=== PATIENT | female | born 1940 | race Caucasian/White ===

== ENCOUNTER 2021-04-18 17:58 | Emergency (ER) | payer OTHER ==
[~2021-04-18] VITALS: Ht 160 cm; Wt 79.4 kg
[2021-04-18 19:42] LABS: ABSOLUTE NEUTROPHILS 4.5 thou/uL (1.4-8.2); BASOPHILS 0.9 % (0.0-2.0); EOSINOPHILS 0.7 % (0.0-3.0); HEMATOCRIT 40.6 % (37.0-47.0); HEMOGLOBIN 13.2 gm/dL (12.0-15.0); LYMPHOCYTES 23.1 % (24.0-44.0); MCH 26.8 pg (26.0-34.0); MCHC 32.5 g/dL (28.0-37.0); MCV 82.5 fL (80.0-100.0); MONOCYTES 15.3 % (1.0-8.0); PLATELET COUNT 197 thou/uL (150-400); RBC 4.92 mil/uL (4.20-5.00); WBC 7.6 thou/uL (4.0-11.0)
[2021-04-18 19:59] LABS: ANION GAP 7 mmol/L (7-16); BUN 17 mg/dL (7-18); CHLORIDE 108 mmol/L (98-107); CO2 28 mmol/L (21-32); CREATININE 1.1 mg/dL (0.6-1.0); GLUCOSE 103 mg/dL (74-106); POTASSIUM 4.2 mmol/L (3.5-5.1); SODIUM 143 mmol/L (136-145)
[2021-04-18 20:10] LABS: ALBUMIN 3.2 g/dL (3.4-5.0); SGOT 8 U/L (15-37); SGPT 17 U/L (14-59); TOTAL BILIRUBIN 0.2 mg/dL (0.2-1.0); TROPONIN-I <0.06 ng/mL (<0.06)
--- NOTE | 2021-04-18 20:11 | EKG ---
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 : 1940 Requested By: Milka Alvarez Order Number: [id number] MD: Johan Alfonso Measurements Intervals [place] Rate: 57 P: NH: QRS: -23 QRSD: 96 T: 46 QT: 448 QTc: 437 Interpretive Statements Atrial fibrillation Low voltage, precordial leads Abnormal R-wave progression, early transition Probable left ventricular hypertrophy No previous ECG available for comparison Electronically Signed On 04-18-2021 20:10:56 CDT by Johan Alfonso [email or web address] <ELECTRONICALLY SIGNED> By: Johan Alfonso MD, [facility] 04/18/212009 30 1831 Johan Alfonso MD, FAC /EPI
[2021-04-18 20:32] VITALS: BP 142/61
== END 2021-04-18 20:49 | disposition home or self-care (01) ==
LOC: ER 17:58
PROVIDERS: Physician Assistant
DX: R07.89 Other chest pain (principal); R00.1 Bradycardia, unspecified; I48.91 Unspecified atrial fibrillation; I10 Essential (primary) hypertension; E78.5 Hyperlipidemia, unspecified

== ENCOUNTER 2021-06-04 21:00 | Emergency (ER) | payer OTHER ==
[~2021-06-04] VITALS: Ht 172.7 cm; Wt 83.7 kg
--- NOTE | ~2021-06-04 | EMS ---
[address] [address] EMS Patient Care Report Name: VILMA JOHNSON Room #: DEP YOLIE Stahl#: [id number] Admission: 06/04/21 Attend Phys: Discharge: 06/04/21 Date of : 44 Report #: [id number] THIS REPORT FOR: //name// Report Transmitted: 06/05/2021 08:36 EMS Care Summary [place], [place]/[facility] Incident [id number] @ 06/04/2021 20:25 Incident Location [address] [place], [place] [id number] Patient VILMA JOHNSON Female, 80 Years 1940 Patient Address [address] [place], [place] [id number] Patient History Dementia,Parkinson's Disease,Atrial Fibrillation, Patient Allergies No known allergies, Patient Medications ASA, Cardizem, Metoprolol, Plavix, Chief Complaint bilateral leg pain Disposition Transported No Lights/[place] Dispatch Reason Falls Transported To [facility] Narrative Arrived to find pt sitting on ground in room in memory care unit. Staff stated they checked on pt and found her sitting on ground. Unwitnessed fall. Pt states [address] [address] EMS Patient Care Report Name: VILMA JOHNSON Room #: DEP YOLIE Stahl#: [id number] Admission: 06/04/21 Attend Phys: Discharge: 06/04/21 Date of : 44 Report #: [id number] she did not hit her head and does not have neck, head, or back pain. Pt does have dementia but states only her feet and lower legs hurt. No obvious deformity anywhere on body. Pt family has POA and wants her transported to [facility]. Staff also states she has refused her Parkinsons medication today. Pt states she does not feel as if she is injured. Pt stands and bears weight on both legs and sits on cot where she is secured with cot straps. Pt placed in back of unit and placed in surgical mask. Pt transported without incident. care to rn, rm 9. Initial Vitals @20:44P: 61,BP: 122/71,CO: 0,SpO2: 94, @20:43P: 66,R: 18,BP: 131/77,Pain: 2/10,GCS: 14,Glucose: 116,SpO2: 94,Revised Trauma: 12, Assessments @20:42MENTAL:Place Oriented,Person Oriented,Confused,SKIN:HEENT:Head/Face: No Abnormalities,Eyes: No Abnormalities,Neck/Airway: No Abnormalities,LUNG SOUNDS:General: No Abnormalities,Left Upper: No Abnormalities,Right Upper: No Abnormalities,Left Lower: No Abnormalities,Right Lower: No Abnormalities,ABDOMEN:General: No Abnormalities,Left Upper: No Abnormalities,Right Upper: No Abnormalities,Left Lower: No Abnormalities,Right Lower: No Abnormalities,PELVIS//GI:No Abnormalities,EXTREMITIES:Left Leg: Other,Right Leg: Other,Left Arm: No Abnormalities,Right Arm: No Abnormalities,PULSE:NEURO:Tremors, Impression Extremity Pain Procedures @20:42ALS AssessmentResponse: UnchangedSucceeded Timeline 20:23,Call Received 20:23,Dispatch Notified 20:25,Dispatched 20:26,En Route 20:38,On Scene 20:41,At Patient 20:42,ALS Assessment,Response: UnchangedSucceeded, 20:43,BP: 131/77 M,PULSE: 66,RR: 18 R,SPO2: 94 Ox,ETCO2: ,B,PAIN: 2,GCS: 14, 20:44,BP: 122/71 M,PULSE: 61,RR: R,SPO2: 94 Ox,ETCO2: ,BG: ,PAIN: ,GCS: , 20:48,Depart Scene 20:57,At Destination 21:10,Call Closed [facility] [address] [place] [address] EMS Patient Care Report Name: VILMA JOHNSON Room #: DEP YOLIE Stahl#: [id number] Admission: 06/04/21 Attend Phys: Discharge: 06/04/21 Date of : 44 Report #: [id number] Disclaimer v1.1 Copyright 2020 [employer] This EMS Care Summary contains data elements from the applicable legal record (which may be displayed differently). It is designed to provide pertinent information for the following purposes: continuity of care, clinical quality, and state data reporting. The complete legal record is available to ED staff and administrators of the receiving hospital in [employer]'s Patient Tracker. All data is provided "as is."
[2021-06-04] MEDS ORDERED: ASA81BEC PO (21:20)
[2021-06-04] MEDS ORDERED: PLAVIX 75 MG TA75 MG PO (21:22)
[2021-06-04] MEDS ORDERED: DEXAMETHASO1 MG/1 ML INTRAOCULR (21:25)
[2021-06-04] MEDS ORDERED: DILTIAZEM ER240 MG PO (21:31)
[2021-06-04] MEDS ORDERED: LEVO-T50 MCG PO (21:33)
[2021-06-04] MEDS ORDERED: MELATONIN3 M1 PO (21:34)
[2021-06-04] MEDS ORDERED: LOPRESSOR50 MG PO (21:35)
[2021-06-04] MEDS ORDERED: REMERON 30 MG T30 M1 PO (21:37)
[2021-06-04] MEDS ORDERED: OLANZAPINE5 M1 PO ×2 (21:38→21:42)
[2021-06-04] MEDS ORDERED: KLOR-CON M2020 MEQ PO (21:43)
[2021-06-04] MEDS ORDERED: OMEPRAZOLE40 MG PO (21:43)
[2021-06-04] MEDS ORDERED: SEROQUEL 25 MG25 MG PO (21:44)
[2021-06-04] MEDS ORDERED: SEROQUEL 50 MG50 M1 PO (21:44)
[2021-06-04] MEDS ORDERED: VITAMIN B-121000 MC2 PO (21:45)
[2021-06-04] MEDS ORDERED: ATIVAN0.5 M1 PO (21:46)
[2021-06-04 22:09] VITALS: BP 121/57
== END 2021-06-04 23:31 ==
LOC: ER 21:00
DX: S80.12XA Contusion of left lower leg, initial encounter (principal); S80.11XA Contusion of right lower leg, initial encounter; I10 Essential (primary) hypertension; I48.91 Unspecified atrial fibrillation; Z79.82 Long term (current) use of aspirin; Z79.899 Other long term (current) drug therapy; W17.89XA Other fall from one level to another, initial encounter; Y93.89 Activity, other specified; Y92.89 Other specified places as the place of occurrence of the external cause; Y99.8 Other external cause status

== ENCOUNTER 2021-06-05 20:23 | Emergency (ER) | payer OTHER ==
[~2021-06-05] VITALS: Ht 160 cm; Wt 90.7 kg
[~2021-06-05 20:23] MED LIST: ASA81BEC PO; ATIVAN0.5 M1 PO; DEXAMETHASO1 MG/1 ML INTRAOCULR; DILTIAZEM ER240 MG PO; KLOR-CON M2020 MEQ PO; LEVO-T50 MCG PO; LOPRESSOR50 MG PO; MELATONIN3 M1 PO; OLANZAPINE5 M1 PO; OMEPRAZOLE40 MG PO; PLAVIX 75 MG TA75 MG PO; REMERON 30 MG T30 M1 PO; SEROQUEL 25 MG25 MG PO; SEROQUEL 50 MG50 M1 PO; VITAMIN B-121000 MC2 PO
[2021-06-05 21:50] VITALS: BP 135/71
== END 2021-06-05 21:45 | disposition home or self-care (01) ==
LOC: ER 20:23
DX: M25.512 Pain in left shoulder (principal); I48.91 Unspecified atrial fibrillation; I10 Essential (primary) hypertension; E78.5 Hyperlipidemia, unspecified; Z79.82 Long term (current) use of aspirin; Z79.891 Long term (current) use of opiate analgesic; Z79.899 Other long term (current) drug therapy; Z87.891 Personal history of nicotine dependence; W19.XXXA Unspecified fall, initial encounter; Y93.89 Activity, other specified; Y92.89 Other specified places as the place of occurrence of the external cause; Y99.8 Other external cause status

== ENCOUNTER 2021-06-09 17:51 | Emergency (ER) | payer OTHER ==
[~2021-06-09] VITALS: Ht 165.1 cm; Wt 79.4 kg
--- NOTE | ~2021-06-09 | EMS ---
[address] [address] EMS Patient Care Report Name: VILMA JOHNSON Room #: DEP YOLIE Stahl#: [id number] Admission: 06/09/21 Attend Phys: Discharge: 06/09/21 Date of : 44 Report #: [id number] THIS REPORT FOR: //name// Report Transmitted: 06/11/2021 01:18 EMS Care Summary [place], [place]/[facility] Incident [id number] @ 06/09/2021 16:49 Incident Location [address] [place], [place] [id number] Patient VILMA JOHNSON Female, 80 Years 1940 Patient Address [address] [place], [place] [id number] Patient History Dementia,Parkinson's Disease,Atrial Fibrillation, Patient Allergies No known allergies, Patient Medications Plavix, ASA, Cardizem, Metoprolol, Chief Complaint FALL Disposition Transported No Lights/[place] Dispatch Reason Falls Transported To [facility] Narrative MEDIC 35 WAS DISPATCHED TO THE ADDRESS LISTED PREVIOUSLY IN THIS REPORT ON A FALL. UPON ARRIVAL, EMS OBSERVED ONE FEMALE PATIENT SITTING UPRIGHT IN A [address] [address] EMS Patient Care Report Name: VILMA JOHNSON Room #: DEP Hakeem.#: [id number] Admission: 06/09/21 Attend Phys: Discharge: 06/09/21 Date of : 44 Report #: [id number] WHEELCHAIR. PATIENT WAS TRACKING EMS UPON APPROACH. RETIREMENT STAFF INFORMED EMS THAT THE PATIENT HAD FALLING MULTIPLE DAYS IN THE DAYS LEADING UP TO EMS ARRIVAL. RETIREMENT STAFF STATED THAT THEY HAD OBSERVED THE PATIENT VIA [facility]ERA SIT ON THE GROUND. RETIREMENT STAFF INFORMED EMS THAT THE FALL WAS "BEHAVORIAL". PATIENT WAS THEN PLACED ON THE COT AND MOVED TO THE AMBULANCE WITHOUT INCIDENT. ONCE IN THE AMBULANCE, VITAL SIGN MONITORING CONTINUED. ONCE ENROUTE TO THE RECEIVING FACILITY ([facility] VITAL SIGN MONITORING CONTINUED AND RADIO REPORT WAS GIVEN. [facility], PATIENT WASMOVED FROM THE AMBULANCE TO THE HOSPITAL COT WITHOUT INCIDENT. VERBAL REPORT WAS GIVEN TO THE PATIENT'S NURSE AND PATIENT CARE WAS TRANSFERRED. Initial Vitals @17:20P: 89,R: 16,Pain: 6/10,GCS: 15,SpO2: 98, Assessments @17:08MENTAL:Confused,SKIN:HEENT:LUNG SOUNDS:ABDOMEN:PELVIS//GI:EXTREMITIES:Left Arm: Edema,Left Arm: Other,Left Leg: Edema,Left Leg: Abnormal Sensation,Right Leg: Abnormal Sensation,Right Leg: Edema,Left Leg: Other,Right Leg: Other,PULSE:Radial: 2+ Normal,Pedal: 2+ Normal,NEURO: Impression Injury of Hip Procedures @17:28Saline Lock 10cc (22 ga) Site: Hand-LeftResponse: UnchangedSucceeded@17:08ALS AssessmentResponse: UnchangedSucceeded Timeline 16:36,Call Received 16:36,Dispatch Notified 16:49,Dispatched 16:49,En Route 17:03,On Scene 17:08,At Patient 17:08,ALS Assessment,Response: UnchangedSucceeded, 17:20,BP: / M,PULSE: 89,RR: 16 R,SPO2: 98 Ox,ETCO2: ,BG: ,PAIN: 6,GCS: 15, 17:28,Saline Lock 10cc 22 ga Site: Hand-Left,Response: UnchangedSucceeded, 17:32,Depart Scene 17:43,At Destination 18:02,Call Closed Disclaimer v1.1 Copyright 2020 [employer] This EMS Care Summary contains data elements from the applicable legal record [facility] [address] [place] [address] EMS Patient Care Report Name: VILMA JOHNSON [id number] Admission: 06/09/21 Attend Phys: Discharge: 06/09/21 Date of : 42 Report #: [id number] (which may be displayed differently). It is designed to provide pertinent information for the following purposes: continuity of care, clinical quality, and state data reporting. The complete legal record is available to ED staff and administrators of the receiving hospital in [employer]'s Patient Tracker. All data is provided "as is."
[~2021-06-09 17:51] MED LIST changes: -DEXAMETHASO1 MG/1 ML INTRAOCULR; +DEXAMETHASONE 0.5 M1 OPHTHALMIC; +MELATONIN10 M1 PO; -MELATONIN3 M1 PO
[2021-06-09 18:39] LABS: URINE BILIRUBIN NEGATIVE (Negative); URINE BLOOD NEGATIVE (Negative); URINE CLARITY CLEAR; URINE COLOR YELLOW; URINE GLUCOSE-RANDOM* NEGATIVE (Negative); URINE KETONES NEGATIVE (Negative); URINE LEUKOCYTES-REFLEX 3+ (Negative); URINE NITRITE-REFLEX POSITIVE (Negative); URINE PROTEIN (DIPSTICK) NEGATIVE (Negative); URINE SPECIFIC GRAVITY 1.015 (1.005-1.035); URINE UROBILINOGEN 0.2 E.U./dl (0.2-1.0)
[2021-06-09 18:46] LABS: SQUAMOUS >10 Many /LPF (0-3)
[2021-06-09 18:47] LABS: BACTERIA-REFLEX >30 Many /HPF (None Seen)
[2021-06-09 18:48] LABS: CASTS None Seen /LPF (None Seen); CRYSTALS None Seen /LPF (None Seen); URINE RBC None Seen /HPF (NONE SEEN)
[2021-06-10 07:02] VITALS: BP 120/63
== END 2021-06-09 21:24 | disposition home or self-care (01) ==
LOC: ER 17:51
PROVIDERS: Nurse Practitioner
DX: F03.90 Unspecified dementia, unspecified severity, without behavioral disturbance, psychotic disturbance, mood disturbance, and anxiety (principal); M25.551 Pain in right hip; M25.552 Pain in left hip; I10 Essential (primary) hypertension; Z79.899 Other long term (current) drug therapy; Z79.82 Long term (current) use of aspirin

== ENCOUNTER 2021-06-10 13:57 | Emergency (ER) | payer OTHER ==
[~2021-06-10] VITALS: Ht 165.1 cm; Wt 79.4 kg
[2021-06-11 01:03] VITALS: BP 90/66
== END 2021-06-11 01:03 ==
LOC: ER 13:57
PROVIDERS: Nurse Practitioner
DX: R46.89 Other symptoms and signs involving appearance and behavior (principal); Z20.822 Contact with and (suspected) exposure to COVID-19; I48.91 Unspecified atrial fibrillation; I10 Essential (primary) hypertension; E78.5 Hyperlipidemia, unspecified; Z79.82 Long term (current) use of aspirin; Z79.891 Long term (current) use of opiate analgesic; Z79.899 Other long term (current) drug therapy; Z87.891 Personal history of nicotine dependence

== ENCOUNTER 2021-06-10 14:39 | Inpatient (IN) | payer OTHER ==
[~2021-06-10] VITALS: Ht 167.6 cm; Wt 83.8 kg
--- NOTE | 2021-06-11 03:24 | NUR ---
PATIENT IS ADMITTED FROM [facility] ER TO 527 WITH NEGATIVE PCR REPORT UNDER THE CARE OF DR RICHARDS. SHE IS ALERT AND ORIENTED. MAX ASSIST WITH TRANSFER. SHE IS INCONTINET OF BOWEL AND BLADDER. SHE WAS SLEEPY AND WEAK AND ALSO ATTEMPTING TO HIT THE STAFF SHE UNABLE TO RESPOND TO QUESTIONS. CALL TO THE HOSPITALIST FOR CONSULT AND HOME MEDS VERIFIED WITH THE ON-CALL PSYCH DOCTOR. MULTIPLE BRUISES NOTED TO HER BODY. WT NOTED AT 180.5LBS ON BED SCALE. SHE DENIES PAINS AT THIS TIME. YELLOW SOCKS ON. Q [address].
[2021-06-11 04:23] VITALS: BP 128/54
[2021-06-11 09:08] LABS: CHOLESTEROL 159 mg/dL (<200); HDL CHOLESTEROL 52 mg/dL (>40); LDL CHOLESTEROL 85 mg/dL (<100); TC:HDL 3.1 Ratio (Not establshd); TRIGLYCERIDE 111 mg/dL (<150); VLDL 22 mg/dL (<40)
[2021-06-11 09:11] VITALS: BP 125/51
--- NOTE | 2021-06-11 14:46 | NUR ---
Assumed pt care at 0700. Pt was alert and oriented to self. Assessments completed, vss. uncooperative, aggressive with care and assessments. No sign of acute distress noted upon assessments. No c/o pain. Bruises noted on pt thighs, legs and arms. Pictures of bruises taken, placed in chart. incontinent of bowel and bladder. Pt is a high fall risk. Fall precaution in Place. Took meds whole with tin liquid, no difficulty noted. At this time pt is in the day room. Will continue to monitor.
--- NOTE | 2021-06-11 14:59 | NUR ---
06-11-2021--13:00--GROUP--Patient was present for group. She was unable to participate in the group due to her dementia.
[2021-06-11 19:50] VITALS: BP 141/66
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
--- NOTE | 2021-06-12 01:11 | NUR ---
ASSUMED CARE ON 06/11/21 @ 1900, SEATED UPRIGHT IN NEGRA CHAIR IN THE DAY ROOM. ORIENTED X1 TO SELF ONLY, VSS, INCONTINENT OF B&B, BECOMES COMBATITIVE WITH CARE. FALL PRECAUTIONS IN PLACE, TAKES MEDS CRUSHED IN PUDDING, ONLY TAKES TINY BITES AT A TIME, TRYING TO TASTE IT. REFUSED WATER DURING MEDICATION ADMINISTRATION. UNABLE TO ASSESS FOR MENTAL HEALTH, NO SI/HI INDICATIONS NOTED, NO INDICATION OF HALUCINATIONS. DEMENTIA NOTED, CANNOT UNDERSTAND THAT THE CARES PROVIDED ARE TO TAKE CARE OF HER. BED IN LOW POSITION, BED ALARM SET, WILL CONTINUE TO MONITOR FOR COMFORT AND SAFETY PER UNIT PROTOCOL.
--- NOTE | 2021-06-12 12:07 | NUR ---
Admit to [facility]: Pt noted with lewy body dementia, increased behaviors. Combative with cares. Frequent, recent falls. Moved to new memory care facility 06/03. Currently with UTI, abt in place. Family to discuss possibility of hospice services. Regular diet with no s/s chewing/swallowing issues. Poor intake yesterday, but 100% both meals today. BMI 29, WNL for age. Follow intake trends. Low nutrition risk at this time.
[2021-06-12 13:17] LABS: ABSOLUTE NEUTROPHILS 4.5 thou/uL (1.4-8.2); BASOPHILS 0.9 % (0.0-2.0); CALCIUM 9.3 mg/dL (8.5-10.1); CREATININE 0.9 mg/dL (0.6-1.0); EOSINOPHILS 0.6 % (0.0-3.0); HEMATOCRIT 40.7 % (37.0-47.0); HEMOGLOBIN 13.4 gm/dL (12.0-15.0); LYMPHOCYTES 16.4 % (24.0-44.0); MCH 26.9 pg (26.0-34.0); MCHC 32.9 g/dL (28.0-37.0); MCV 81.7 fL (80.0-100.0); PLATELET COUNT 198 thou/uL (150-400); POLYS 65.1 % (36.0-66.0); POTASSIUM 4.2 mmol/L (3.5-5.1); RBC 4.98 mil/uL (4.20-5.00); WBC 6.9 thou/uL (4.0-11.0)
--- NOTE | 2021-06-12 18:05 | NUR ---
CHEMO and Dr. Zamudio participated in a phone call with [facility] Pt's daughter, Kaley. An update was given on the Pt. Dr. Zamudio provided education on delirum and Lewy body. Kaley was very emotional during this call and begin to cry asking " So is my mother dying". Information on the status of the pt not eating or taking medications was discussed. Dr. Zamudio discussed the antibiotics for the UTI and other medications. CHEMO requested the family contact the nurses station 1-2x daily for updates. If unable to get the nurse asked them to call CHEMO. Chemo provided contact information. CHEMO will continue to follow.
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
--- NOTE | 2021-06-12 22:12 | NUR ---
UPON ENTRANCE TO THE UNIT NOTED THAT PATIENT IS YELLING AT STAFF AND COMBATIVE. STAFF WAS ATTEMPTING TO GET HER CLEANED AFTER AN INCONTINENT EPISODE. AFTER PATIENT WAS CLEANED SHE CONTINUES TO SCREAM AND IS KICKING AT STAFF. NOTIFIED PROVIDER OF PATIENT SITUATION. EXPLAINED THAT SHE WILL NOT FOLLOW SIMPLE COMMANDS. AM SHIFT STATED THAT THE PATIENT HAD RECEIVED GEODON EARLIER IN THE SHIFT TO NO EFFECT. RECEIVED ORDER FOR HALDOL 5MG IM X1 AND ATIVAN 1MG IM. PATIENT TOLERATED IM OKAY. SHE IS DISORIENTED AND UNABLE TO ANSWER ANY QUESTIONS PER ADMISSION BASELINE. WILL CONTINUE TO MONITOR PATIENT FOR NEEDS.
[2021-06-13 09:13] VITALS: BP 132/74
--- NOTE | 2021-06-13 15:00 | NUR ---
Joan was alert and oriented to herself, at times. She has a delayed response, when responding to her name as she appears preoccupied with things that are not there. She appears to be reaching for things that are not there and spoke about a "man right there" but there was not anyone there. She was restless throughout the shift, often trying to pull her clothes off, requiring frequent redirection. She was medication compliant, taking pills whole in yogurt or applesauce. Her appetite remains poor, despite frequent attempts to feed pt, but she did finish half an applesauce, and half a yogurt with her daytime medications. She has a yellow fall shirt and non-skid socks on as pt is a high fall risk. She received a shower this shift and is total cares. Pt denies pain this shift and did not appear to be in any distress or voice physical complaints. Will continue to monitor.
[2021-06-13 19:22] VITALS: BP 140/82
--- NOTE | 2021-06-14 03:51 | NUR ---
AT THE BEGINNING OF HS SHIFT PATIENT WAS AGAIN IRRITATED. SHE WAS YELLING AT BAG MAKING MACHINE OPERATOR AND TRYING TO GET OUT OF HER CHAIR. PATIENT WAS TRANSFERRED TO HER ROOM SHE HAS HAD A BM. PT RESISTED GETTING CLEAN CLOTHES PUT ON. PT CONTINUES TO SCREAM AND REMAINS COMBATIVE NO REDIRECTION IS EFFECTIVE. PRN HALDOL 5MG IM ADMINISTERED. PATIENT WAS ABLE TO CALM DOWN A FEW MINUTES LATER. SHE TOOK HER MEDICATION WITH PUDDING. SHE ALSO HAD ANOTHER BM. PATIENT REMAINS ORIENTED TO PERSON ONLY. NO OTHER ISSUES NOTED. NO ACUTE CHANGE IN PATIENT STATUS.
[2021-06-14 06:35] LABS: CALCIUM 8.9 mg/dL (8.5-10.1); CREATININE 0.9 mg/dL (0.6-1.0); POTASSIUM 3.6 mmol/L (3.5-5.1)
[2021-06-14 09:08] VITALS: BP 171/79
[2021-06-14 10:03] VITALS: BP 125/61
[2021-06-14 12:33] VITALS: BP 125/61
--- NOTE | 2021-06-14 15:09 | NUR ---
Updates faxed to [facility]
--- NOTE | 2021-06-14 17:03 | NUR ---
Joan was alert and oriented to self only. She appeared drowsy this morning but was easily arousable. Despite multiple attempts to pass pt's AM medications, she refused to take bites of applesauce. Time was taken between attempts to see if that would help, but each time pt would state "I don't know how to" when asked to take a bite. Pt was also noted to cough when taking a sip of water. Rochelle with ST was on the floor at that time and recommended nectar thickened liquids and a ST eval, both of which were addressed during treatment team and orders placed. Pt received IM haldol 2.5 mg due to forced order if refuses PO haldol. Pt was restless throughout the day, at times trying to take her clothes of, but was able to be redirected and assistance given to put pt's shirt back on. Dr. Wilkerson placed a new order for haldol 2.5 mg at 1700 in addition to haldol 2.5 mg TID, verbal clarification received. Pt was able to take her evening doses of haldol in yogurt without issues. Ray, pt's caregiver stated that up until 4 days FOUNTAIN SERVER he only "had issues with her taking her pills once, and even though she said she wouldn't eat, she gained 20 pounds in a few months and had no issues eating". Pt remains on high fall risk and was in sight of staff at all times throughout the day and has a yellow shirt and non-skid yellow socks on. Will continue to monitor.
--- NOTE | 2021-06-14 19:30 | NUR ---
This evening when changing pt and laying her in bed, she was noted to have jelly like stool. She has been noted to have multiple loose stools per tech. She was very difficult and agitated with cares. Pt was also noted to have a significant amount of thick, dry, blood to her lips. Dr. Jimenez was paged and this information was relayed to him. He gave order for c-diff sample which was collected and dropped down to lab. He instructed RN to apply pressure to the affected area in pt's mouth. This RN relayed to Dr. Jimenez that pt does not follow instructions well and this would be difficult. RN Police Chief Deputy, Pao, was called for advice and stated material handling warehouse supervisor would come see pt. sewer maintenance supervisor did not see any active bleeding at that time and did not think she needed to be suctioned. During this time, pt was noted trying to get out of bed, unable to be redirected, and continued to be agitated. Haldol 2.5 mg IM was given per MAR. Pt continues to be restless and unable to stay in bed, pt is currently be transferred to her chair and brought back to the dayroom. HS shift to continue care.
[2021-06-14 19:35] VITALS: BP 125/61
--- NOTE | 2021-06-14 21:34 | NUR ---
ASSUMED CARE ON 06/14/21 @ 1900, TRANSFERRED TO BED, HOWEVER WAS GETTING OUT OF BED AND COMBATITIVE WITH STAFF. DAY SHIFT NURSE PROVIDED PT IM, AND PATIENT WAS RETURNED TO NEGRA CHAIR AND RETURNED TO THE DAY ROOM. REFUSED P.O. MEDICATIONS, LEE JUDD ROUTER OPERATOR GAVE NO NEW ORDERS TO REPLACE NITROFURATONIN AND DEPAKOTE THAT THE PATIENT REFUSED. IF PATIENT HAS BEHAVIORS, STATED TO GIVE CURRENT ORDER OF HALDOL IM. RECLINED IN THE NEGRA CHAIR AT A TABLE.
[2021-06-15 09:29] VITALS: BP 111/60
[2021-06-15 12:29] VITALS: BP 111/60
--- NOTE | 2021-06-15 17:11 | NUR ---
SW attempted to check in with pt. Pt. would not respond to the SW.
--- NOTE | 2021-06-15 18:06 | NUR ---
Joan was alert and oriented to self only. She refused her morning medications despite frequent reattempts and encouragement. She was pushing the spoon of yogurt away (with crushed medications) and shaking her head no. Pt was given forced IM of haldol 2.5 mg per MAR for refusal of PO haldol. She continued to be restless throughout the shift, but less so than previous days as pt did not attempt to remove her clothing this shift. Pt was noted talking to things that were not there and pretending to drink something when there was nothing in her hand. Pt remains on nectar thick/pureed diet with a poor appetite. Pt was compliant with both afternoon doses of PO haldol which was given in yogurt. With pt's scheduled 1500 dose pt ate two containers of yogurt without diffulty. Pt's c-diff came back negative this shift. Update was given to Kaley this shift. Will continue to monitor.
[2021-06-15 19:35] VITALS: BP 127/52
[2021-06-16 01:02] VITALS: BP 127/52
--- NOTE | 2021-06-16 01:07 | NUR ---
06/15/21 - sitting in g chair in dayroom, Pt is fidgety but not agitated, pt does respond to her name, took her medications crushed in pudding with no difficulty. Will continue to monitor throughout shift.
[2021-06-16 09:56] VITALS: BP 141/58
--- NOTE | 2021-06-16 10:56 | NUR ---
Faxed patient updates
[2021-06-16 14:01] VITALS: BP 141/58
--- NOTE | 2021-06-16 17:31 | NUR ---
Joan was alert and oriented to self only this shift. She was very verbal, talking to others that were not there this morning. Pt would periodically yell out "go away" when no one was there. Pt refused her morning medications this morning, shaking her head "no" and would not take a bite of the yogurt which her medications were crushed in. Pt was restless throughout the day, often trying to take off her clothes in the dayroom and would become agitated when staff would try to dress pt. Pt received IM hadol this morning and at 1500 per forced order if pt refuses PO haldol. Pt was compliant with 1700 dose of haldol and took in pudding. Pt appeared more calm and easier to redirect this afternoon. Pt also was able to eat about 15% of dinner and per RAILROAD MECHANIC pt did better with liquids when given on a spoon. Pt is currently calm, sitting in the joseph chair in the dayroom with her chair alarm on, at a table, near staff. Pt remains a high fall risk, has been in line of sight of staff throughout the day, is in a yellow shirt, and yellow non-skid socks. Pt is a max assist and requires staff assistance with cares. Will continue to monitor.
[2021-06-16 19:30] VITALS: BP 106/78
--- NOTE | 2021-06-17 00:18 | NUR ---
PATIENT MORE CALM ON THE UNIT TONIGHT. SHE IS ALSO MORE RELAXED. CONTINUES TO BE UNABLE TO HOLD A CONVERSATION BUT WAS COMPLIANT WITH HER MEDICATIONS THIS HS. NO S/S OF DISTRESS NOTED AT THIS TIME. SHE DOES NOT ANSWER EITHER WAY WHEN ASKED ABOUT PAIN. SHE IS INCONTINENT OF URINE AND STOOL. VSS. BED PLACED IN LOW POSITION. WILL CONTINUE TO MONITOR FOR CHANGES IN STATUS.
[2021-06-17 09:46] VITALS: BP 104/60
[2021-06-17 14:58] LABS: HEMATOCRIT 42.3 % (37.0-47.0); HEMOGLOBIN 13.4 gm/dL (12.0-15.0); MCH 26.9 pg (26.0-34.0); MCHC 31.8 g/dL (28.0-37.0); MCV 84.7 fL (80.0-100.0); RBC 4.99 mil/uL (4.20-5.00); RDW 17.6 % (10.5-14.5); WBC 10.4 thou/uL (4.0-11.0)
[2021-06-17 15:07] LABS: ALBUMIN 3.9 g/dL (3.4-5.0); CALCIUM 9.7 mg/dL (8.5-10.1); CREATININE 0.9 mg/dL (0.6-1.0); POTASSIUM 3.4 mmol/L (3.5-5.1); TOTAL BILIRUBIN 0.9 mg/dL (0.2-1.0); TOTAL PROTEIN 7.6 g/dL (6.4-8.2)
--- NOTE | 2021-06-17 16:10 | NUR ---
PT RESTING COMFORTABLY IN NEGRA CHAIR. ALERT TO SELF. PT AFEBRILE, INCONTINENT (CHANGED AND CLEANED), NO BM, FAIR APPETITE. PT AND FAMILY HAVE BEEN THOUROUGHLY UPDATED AND EDUCATED ON PT CONDITION AND POC. PT SLOWLY PROGRESSING TOWARDS POC.
[2021-06-17 20:10] VITALS: BP 141/90
[2021-06-17 20:16] VITALS: BP 141/90
--- NOTE | 2021-06-18 03:56 | NUR ---
PATIENT WAS SITTING UP IN NEGRA CHAIR IN DINING ROOM. PATIENT A/0X1. PATIENT SITTING ON CHAIR ALARM. SHE WAS CALM AND COOPERATIVE AND COULD NOT ANSWER ALL QUESTIONS APPROPRIATELY. SHE DENIES PAIN. NO SIGNS OF SI/HI. SHE DOES HAVE VISUAL HALLUCINATIONS AND IS ALWAYS PICKING UP THINGS OFF HER CLOTHES THAT ARE NOT THERE OR SEEING OBJECTS ON THE TABLE IN FRONT OF HER. PATIENT IS NON WEIGHT BEARING AND IS COMBATIVE WITH CARES. PATIENT IS INCONTINENT. PATIENT IS ON NECTAR THICK FLUIDS. PATIENT TOOK HER MEDS CRUSHED IN [facility]. PATIENT IS DIFFICULT TO FALL ASLEEP IN BED BUT EVENTUALLY STOPS BEING RESTLESS AND FALLS TO SLEEP. BED IN LOW POSITION AND BED ALARM IS ON. ROUTINE ROUNDS TO ASSESS SAFETY AND STATUS OF PATIENT.
[2021-06-18 09:20] VITALS: BP 127/69
--- NOTE | 2021-06-18 11:21 | NUR ---
RT Progress Note- Although present in the milieu and recreation therapy groups, Joan has yet to actively engage during her stay. While awake, Joan does appear to be responding to internal stimuli as evidence by her reaching in the air and talking to unseen others. Though she does this, it is not disruptive to the milieu or groups. MANAGER BAKERY will continue to include Joan in recreation therapy groups and further encourage engagement.
--- NOTE | 2021-06-18 14:00 | NUR ---
Assumed pt care at 0700. pt was alert and oriented to person. Assessments completed, vss. Lungs clear, active bowel sound. No sign of si/hi noted. No c/o pain at this time. Refused 9am meds and potasium. Agressive, combative, irritable, and uncooperative with care. Ambulates with a Dayanara chair. Pt is a max assist. incontinent of bowel and bladder. Ate breakfast. Refused her lunch. At this time pt is sleeping but arousable in the day room. Pt is a fall risk. Fall precaution in place. Will continue to monitor.
--- NOTE | 2021-06-18 14:15 | NUR ---
OMAYRA and Dr. Zamudio participated in a phone call with Wilmer. An update was given was given on the Pt. Hospice was discussed and the family is in agreement. Pt will be discharged back to [facility] on 06/19/2021.
--- NOTE | 2021-06-18 14:31 | NUR ---
OMAYRA was able to speak to the CINDI Torres at [facility]. She was able to complete an assessment via zoom with the Pt. Jose Luis requested a letter from the doctor stating Pt is not a harm to self or others. Discharge was set for 06/19/2021 @ 1030. Pt will be transported via stretcher by [facility].
--- NOTE | 2021-06-18 14:49 | NUR ---
SW faxed a referral to [facility] (formerly [facility]). They have accepted the Pt for hospice.
[2021-06-18 19:37] VITALS: BP 130/73
[2021-06-18 20:10] VITALS: BP 130/73
--- NOTE | 2021-06-19 04:45 | NUR ---
PATIENT HAS BEEN UP IN NEGRA CHAIR IN DINING ROOM ALL NIGHT. SHE HAS BEEN CALM AND COOPERATIVE. SHE ACTUALLY SMILED TONIGHT WHEN COMPLIMENTED ON HER HAIR. PATIENT HAS SLEPT WELL IN HER NEGRA CHAIR RECLINED. DENIES PAIN. NO SIGNS OF SI/HI/AVH TONIGHT. MEDS CRUSHED IN APPLESAUCE. PATIENT ON NECTAR THICK FLUIDS. CONTINUING TO MONITOR.
[2021-06-19] MEDS ORDERED: HALOPERIDOL 5 MG5 MG PO (09:17)
[2021-06-19 09:35] VITALS: BP 146/71
--- NOTE | 2021-06-19 10:31 | NUR ---
PATIENT CARE ASSUMED AT 0700, PATIENT SITTING IN THE NEGRA CHAIR SLEEPING IN COMMON AREA, REFUSED BREAKFAST AND MEDICATION, BREATH SOUND CLEAR, ACTIVE BOWEL SOUND WITH SOFT AND ROUNDED ABDOMEN, PATIENT IS INCONTINENT OF BOWEL AND BLADDER, UNABLE TO VERBALIZE NEED, SHE IS A MAX ASSIST, NO SI/HI OBSERVED, PATIENT IS DISCHARGED TO [facility], CALLED TO GIVE REPORT AND WAS TOLD THE NURSE WILL BE CALLING ME BACK
--- NOTE | 2021-06-20 21:29 | D ---
[facility] [place] [address] DISCHARGE SUMMARY Name: VILMA JOHNSON Room #: 519A-A DIS IN M.R.#: [id number] Admission: 06/11/21 Attend Phys: Keenan Sparks DO Discharge: 06/19/21 Date of : 44 Report #: [id number] THIS REPORT FOR: cc: Chriss Miramontes MD, Christopher B. MD Kerstein, Andrew H. DO ~ DATE OF SERVICE: 06/19/2021 INPATIENT PSYCHIATRIC DISCHARGE SUMMARY ATTENDING PSYCHIATRIST: Keenan Sparks D.O. MEDICAL SCIENCE LIAISON AT TIME OF DISCHARGE: Olu Carson M.D. 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 MEDICAL COMORBIDITIES: Debility; weakness; deconditioning; UTI; culture positive for E. coli and beta strep, finished antibiotics; hypernatremia; hypovolemic due to dementia and decreased intake; atrial fibrillation, on beta crispin, Cardizem; hypertension; hyperlipidemia; hypothyroidism; gastroesophageal reflux disease. The patient is discharging to [facility] Unit. Psychiatric and medical care by receiving facility. The patient is on nectar thick liquids. Otherwise, regular diet. She is a max assist for transfers, bathing, daily skin checks to look for wound breakdown. DISCHARGE MEDICATIONS: As follows: Potassium chloride 20 mEq oral daily for supplementation, aspirin 81 mg one daily for heart protection, Plavix 75 mg oral daily for heart protection, dexamethasone drops one drop ophthalmic twice daily, diltiazem ER 240 mg oral daily for rate control and blood pressure, levothyroxine 50 mcg oral daily for hypothyroidism, metoprolol tartrate 1 tablet oral twice daily for rate control of her heart, cyanocobalamin 500 mcg oral daily for supplementation, haloperidol 2.5 mg oral 3 times a day every 8 hours p.r.n. for agitation. I did order a hospital consultation for evaluation on the day prior to discharge. LABORATORY DATA: Significant laboratories this admission as follows, 06/16/2021 CBC showed white count of 10.4, H and H 13.4 and 42.3, platelet count 204. Chemistry on 06/16/2021, sodium 148, potassium 3.4, chloride 111, bicarbonate 24, anion gap 13, BUN 15, creatinine 0.9, estimated GFR 61, glucose 115. Hemoglobin A1c 6.0, calcium 9.7, total bilirubin 0.9, AST 21, ALT 32, alkaline phosphatase 110. Ammonia 11. Total protein 7.6, albumin 3.9, triglycerides 111, LDL 85, HDL 52. TSH slightly high at 6.581. Urinalysis this admission had several positives, will review the culture shortly. Depakote level on 06/16/2021 was 27. I ended up discontinuing the Depakote due to poor [address] [address] DISCHARGE SUMMARY Name: VILMA JOHNSON Room #: 519A-A DIS IN M.R.#: [id number] Admission: 06/11/21 Attend Phys: Keenan Sparks DO Discharge: 06/19/21 Date of : 44 Report #: [id number] compliance. Her COVID-2 PCR was negative on 06/15/2021. She had a negative C. diff test on 06/14/2021. Microbiology this admission was positive for E. coli 100,000 CFU and group B strep, 100,000 CFUs. REASON FOR ADMISSION: Back in the end of May is as follows: A 80-year-old female sent in from memory care unit [facility]. The patient is , ill, disabled. Apparently, she was having agitated behavior and repeated falls. The nursing facility felt they could not manage her. There was bruising noticed in the ER in various areas of the body, which is documented. HOSPITAL COURSE: The patient was admitted to Geriatric Psychiatry Unit. The patient had a rather morbid course with poor response to treatment whether antipsychotic or mood stabilizer like Depakote. The patient had suboptimal intake throughout. Several telephonic family meetings were held. Role of hospice and palliative care was discussed. The son-in-law, Alexander and DPOA, Kaley, were involved in these conversations. They did agree the day before discharge for hospice consultation. The patient should be a no code at nursing facility. At the day of discharge, the patient was guarded due to poor prognosis, but could be managed in a less restrictive setting. PHYSICAL EXAMINATION: VITAL SIGNS: On the day of discharge, temperature 35.6, pulse 96, respirations 17, BP 146/71, O2 sat 97%. MUSCULOSKELETAL: In Dayanara chair, poor posture. MENTAL STATUS EXAMINATION: This is a well-developed, ill-appearing female, appearing her own stated age. Attention limited. Concentration impaired. Speech, normal volume, but nonspontaneous. Unable to assess well for suicidality and homicidality, but the patient was not self-injurious. Memory known to be impaired. Insight impaired and judgment impaired. Fund of knowledge below average. Prognosis for this patient is poor. She will need 24/7 care, supervision and max assist for ADLs. <ELECTRONICALLY SIGNED> By: Keenan Sparks, 06/20/212128 [id number] Keenan Sparks DO /nt
== END 2021-06-19 11:32 | DRG 57 ==
LOC: SBH
PROVIDERS: Nurse Practitioner Psychiatric/Mental Health; Psychiatry & Neurology Psychiatry; ADMIT Psychiatry & Neurology Psychiatry; ATTEND Psychiatry & Neurology Psychiatry
DX: G31.83 Neurocognitive disorder with Lewy bodies (principal); F05 Delirium due to known physiological condition; B95.1 Streptococcus, group B, as the cause of diseases classified elsewhere; N39.0 Urinary tract infection, site not specified; F02.81 Dementia in other diseases classified elsewhere, unspecified severity, with behavioral disturbance; F01.51 Vascular dementia, unspecified severity, with behavioral disturbance; E87.0 Hyperosmolality and hypernatremia; R29.6 Repeated falls; I48.91 Unspecified atrial fibrillation; I10 Essential (primary) hypertension; E78.5 Hyperlipidemia, unspecified; K21.9 Gastro-esophageal reflux disease without esophagitis; F32.9 Major depressive disorder, single episode, unspecified; G47.00 Insomnia, unspecified; F41.9 Anxiety disorder, unspecified; R53.81 Other malaise; E03.9 Hypothyroidism, unspecified; B96.20 Unspecified Escherichia coli [E. coli] as the cause of diseases classified elsewhere; Z20.822 Contact with and (suspected) exposure to COVID-19; E86.1 Hypovolemia; Z79.82 Long term (current) use of aspirin; Z79.899 Other long term (current) drug therapy
CPT/HCPCS: 10880